=== PATIENT | male | born 1940 | race Caucasian/White ===

== ENCOUNTER 2017-02-18 15:48 | Observation (INO) | payer MEDICARE, OTHER ==
[2017-02-18] MEDS ORDERED: HEPARIN SODIUM,PORCINE 5,000 UNIT/ML 1 ML VIAL IV ONE (15:59)
[2017-02-18] MEDS ORDERED: HEPARIN SODIUM,PORCINE 5,000 UNIT/ML 1 ML VIAL IV PRN (15:59)
[2017-02-18] MEDS ORDERED: NITROGLYCERIN SL TABS 0.4 MG TAB SUBLINGUAL PRN (15:59)
[2017-02-18] MEDS ORDERED: SODIUM CHLORIDE 0.9% 1,000 ML IV STA (15:59)
[2017-02-18] MEDS ORDERED: HEPARIN SODIUM,PORCINE/D5W PMX 25,000 UNIT in DEXTROSE/WATER 1 500ML.BAG IV SCH (16:00)
--- NOTE | 2017-02-18 16:11 | ED ---
General Adult HPI - General Chief complaint: Chest Pain Stated complaint: chest pain Time Seen by Provider: 02/18/17 15:55 Source: patient, EMS, RN notes reviewed, old records reviewed Mode of arrival: EMS Limitations: no limitations - History of Present Illness Initial comments: This is a 76-year-old male to the ER for evaluation. Patient does presents today for evaluation of chest pain. Episodic chest pain. Patient's chest patient from outside facility for cardiac observation. 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 Patient has no nausea vomiting diarrhea. No shortness of breath no fevers cough or congestion. Patient at this point states his pain is controlled and is not acting up. No shortness of breath no diaphoresis - Related Data Home Medications Medication Instructions Recorded Confirmed Allopurinol [Zyloprim] 300 mg PO DAILY 02/23/14 08/24/15 Metoprolol Tartrate [Lopressor] 50 mg PO DAILY 02/23/14 08/24/15 Clindamycin [Cleocin] 150 mg PO TID 08/25/15 08/25/15 Omeprazole [PriLOSEC] 10 mg PO AC-BRKFST 08/25/15 08/25/15 Pravastatin Sodium [Pravachol] 20 mg PO DAILY 08/25/15 08/25/15 Allergies Allergy/AdvReac Type Severity Reaction Status Date / Time divalproex sodium Allergy Unknown Verified 02/18/17 15:57 [From Depakote] phenytoin sodium Allergy Unknown Verified 02/18/17 15:57 [From Dilantin] phenytoin sodium extended Allergy Unknown Verified 02/18/17 15:57 [From Dilantin] Review of Systems ROS Statement: Those systems with pertinent positive or pertinent negative responses have been documented in the HPI. ROS Other: All systems not noted in ROS Statement are negative. 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 Absent: scleral icterus, conjunctival injection, periorbital swelling ENT exam: Present: normal exam, mucous membranes moist Neck exam: Present: normal inspection. Absent: tenderness, meningismus, lymphadenopathy Respiratory exam: Present: normal lung sounds bilaterally. Absent: respiratory distress, wheezes, rales, rhonchi, stridor Cardiovascular Exam: Present: regular rate, normal rhythm, normal heart sounds. Absent: systolic murmur, diastolic murmur, rubs, gallop, clicks GI/Abdominal exam: Present: soft, normal bowel sounds. Absent: distended, tenderness, guarding, rebound, rigid Extremities exam: Present: normal inspection, full ROM, normal capillary refill. Absent: tenderness, pedal edema, joint swelling, calf tenderness Back exam: Present: normal inspection Neurological exam: Present: alert, oriented X3, CN II-XII intact Psychiatric exam: Present: normal affect, normal mood Skin exam: Present: warm, dry, intact, normal color. Absent: rash Course Vital Signs 02/18/17 02/18/17 15:53 15:58 Temperature 98.5 F Pulse Rate 88 52 L Pulse Rate [ 52 L Apical] Respiratory 18 18 Rate Blood Pressure 175/100 O2 Sat by Pulse 96 Oximetry - Reevaluation(s) Reevaluation #1: 02/18/17 16:10 Medical records from transfer reviewed and transient physician is spoken with EKG Findings - EKG Comments: EKG Findings:: EKG shows rate of 53, NH 200, QRS 90, QTC 394 Medical Decision Making - Medical Decision Making 76 me[address] ER for evaluation of chest pain. Patient is history of heart disease , transient of the chest pain observation patient, patient will be admitted for cardiac evaluation, unstable angina with alternating chest pain Critical Care Time Critical Care Time: Yes Total Critical Care Time: 31 Disposition Clinical Impression: Chest pain Disposition: ADMITTED IP TO THIS HOSP Condition: Undetermined Instructions: Chest Pain (ED) Referrals: Lane Vega MD [Primary Care Provider] - 1-2 days
[2017-02-18 16:18] LABS: Basophils % (A) 1 %; CHCM 34.9; Eosinophils # (A) 0.2 k/uL (0-0.7); Eosinophils % (A) 2 %; HGB 15.1 gm/dL (13.0-17.5); Luc # (Auto) 0.09; Luc % (Auto) 1; Lymphocytes # (A) 1.6 k/uL (1.0-4.8); Lymphocytes % (A) 21 %; MCHC 33.6 g/dL (31.0-37.0); MCV 86.3 fL (80.0-100.0); Mean Platelet Volume 6.4; Monocytes # (A) 0.3 k/uL (0-1.0); Monocytes % (A) 5 %; Neutrophils # (A) 5.3 k/uL (1.3-7.7); Neutrophils % (A) 70 %; RBC 5.22 m/uL (4.30-5.90); RDW 13.7 % (11.5-15.5); WBC 7.6 k/uL (3.8-10.6)
[2017-02-18] MEDS: ASPIRIN 81 MG CHEW PO STA ×2 (16:18→16:24)
[2017-02-18 16:26] LABS: INR 1.1 (<1.1); Partial Thromboplastin Time 24.3 sec (22.0-30.0)
[2017-02-18 16:51] LABS: ALT 32 U/L (21-72); AST 31 U/L (17-59); Alkaline Phosphatase 61 U/L (38-126); Anion Gap 11 mmol/L; Blood Urea Nitrogen 20 mg/dL (9-20); Calcium 9.7 mg/dL (8.4-10.2); Carbon Dioxide 24 mmol/L (22-30); Chloride 106 mmol/L (98-107); Creatine Kinase 82 U/L (55-170); Glucose 89 mg/dL (74-99); Non-African American GFR(MDRD) >60 (>60 ml/min/1.73 sqM); Sodium 141 mmol/L (137-145); Total Bilirubin 0.8 mg/dL (0.2-1.3); Total Protein 7.2 g/dL (6.3-8.2)
[2017-02-18 17:03] LABS: Troponin I <0.012 ng/mL (0.000-0.034)
[2017-02-18 19:40] VITALS: RESP 16
[2017-02-18] MEDS ORDERED: TEMAZEPAM 15 MG CAP PO PRN (21:12)
[2017-02-18] MEDS ORDERED: HYDROmorphone 1 MG/ML 1 ML SYRINGE IVP PRN (21:12)
[2017-02-18] MEDS ORDERED: HYDROcodone/APAP 5-325MG 1 EACH TAB PO PRN (21:12)
[2017-02-18] MEDS ORDERED: ALPRAZolam 0.25 MG TAB PO PRN (21:12)
[2017-02-18] MEDS ORDERED: LISINOPRIL 5 MG TAB PO SCH (22:00)
[2017-02-18] MEDS: METOPROLOL TARTRATE 50 MG TAB PO SCH (22:18)
[2017-02-18 23:10] LABS: Creatine Kinase 74 U/L (55-170)
[2017-02-18 23:23] LABS: Creatine Kinase MB 0.9 ng/mL (0.0-2.4); Troponin I <0.012 ng/mL (0.000-0.034)
[2017-02-19 07:26] LABS: Anion Gap 10 mmol/L; Blood Urea Nitrogen 16 mg/dL (9-20); Calcium 9.2 mg/dL (8.4-10.2); Carbon Dioxide 26 mmol/L (22-30); Chloride 106 mmol/L (98-107); Cholesterol 133 mg/dL (<200); Glucose 84 mg/dL (74-99); HDL Cholesterol 41 mg/dL (40-60); Non-African American GFR(MDRD) >60 (>60 ml/min/1.73 sqM); Potassium 4.3 mmol/L (3.5-5.1); Sodium 142 mmol/L (137-145); Triglycerides 108 mg/dL (<150)
[2017-02-19 07:32] LABS: Basophils # (A) 0.1 k/uL (0-0.2); Basophils % (A) 1 %; CH 29.8; CHCM 33.9; Eosinophils # (A) 0.2 k/uL (0-0.7); Eosinophils % (A) 4 %; HCT 43.7 % (39.0-53.0); HDW 2.93; HGB 14.4 gm/dL (13.0-17.5); Luc # (Auto) 0.11; Luc % (Auto) 2; Lymphocytes # (A) 1.3 k/uL (1.0-4.8); Lymphocytes % (A) 25 %; MCH 29.2 pg (25.0-35.0); MCV 88.4 fL (80.0-100.0); Mean Platelet Volume 6.3; Monocytes # (A) 0.3 k/uL (0-1.0); Monocytes % (A) 6 %; Neutrophils # (A) 3.2 k/uL (1.3-7.7); Neutrophils % (A) 61 %; RBC 4.95 m/uL (4.30-5.90); RDW 13.7 % (11.5-15.5); WBC 5.2 k/uL (3.8-10.6); WBC (Perox) 5.11
[2017-02-19 07:35] LABS: Creatine Kinase 66 U/L (55-170)
[2017-02-19 07:48] LABS: Troponin I <0.012 ng/mL (0.000-0.034)
[2017-02-19 07:49] LABS: Creatine Kinase MB 0.9 ng/mL (0.0-2.4)
[2017-02-19 07:53] VITALS: BP 156/74; PULSE 52; TEMP 97.7
--- NOTE | 2017-02-19 08:04 | HP ---
DATE OF ADMISSION: 02/18/2017 CHIEF COMPLAINT: Chest pains. HISTORY OF PRESENT ILLNESS: This 76-year-old gentleman with a past medical history of CAD, history of CVA/TIA, history of degenerative joint disease, prostate disorder, history of bleeding ulcer, back surgery, CAD/CABG being followed by in the [place] area had a recent tooth extraction of four or five teeth in the lower jaw area from [place]. The patient having chest pain, which was felt in the anterior part of the chest and the patient subsequently sent to [facility]. He was admitted to the hospital for further evaluation and treatment. There is no history of fever, rigors or chills. No history of headache, loss of consciousness or seizures. No history of palpitations, shortness of breath, hematochezia or melena at this time. The pain was mild to moderate in intensity which was felt in the anterior part of the chest without radiation. No associated sweating or palpitation. PAST MEDICAL HISTORY: 1. History of coronary artery disease. 2. History of chest pain/angina. 3. History of cerebrovascular accident, transient ischemic attack. 4. History of gastrointestinal bleed. 5. Hypertension. 6. Hyperlipidemia. History of degenerative joint disease. 7. History of back surgery. Medications prior to admission, the home medications are: 1. Zestril 5 mg p.o. daily. 2. Flomax 0.4 daily. 3. Pravachol 20 mg q.h.s. 4. Lopressor 50 mg daily. 5. Aspirin 81 mg. 6. Zyloprim 100 mg p.o. daily. ALLERGIES: DEPAKOTE AND DILANTIN. FAMILY HISTORY: History of diabetes mellitus and aneurysm in the family. SOCIAL HISTORY: Previous history of smoking, no history of current smoking or alcohol intake. REVIEW OF SYSTEMS: ENT: No diminished vision, no diminished hearing. CARDIOVASCULAR: As mentioned earlier. RESPIRATORY: As mentioned earlier. GI: No nausea. : No dysuria. Nervous system: No numbness or weakness. ALLERGY/IMMUNOLOGY: No asthma or hayfever. MUSCULOSKELETAL: As mentioned earlier. HEMATOLOGY/ONCOLOGY: No history of anemia. ENDOCRINE: No history of diabetes mellitus or hypothyroidism. CONSTITUTIONAL: As mentioned earlier. DERMATOLOGY: Negative. RHEUMATOLOGY: Negative. PSYCHIATRY: As mentioned earlier. PHYSICAL EXAMINATION: The patient is alert and oriented x3. Pulse is 64. Blood pressure 192/80. Respiratory rate 16, temperature 99.9, pulse ox 97% on room air. HEENT: Conjunctivae normal. NECK: No jugular venous distention. CARDIOVASCULAR: S1, S2 muffled. RESPIRATORY: Breath sounds diminished at the bases. A few rhonchi, no crackles. ABDOMEN: Soft. Nontender. No mass palpable. LEGS: No edema. No swelling. CENTRAL NERVOUS SYSTEM: Higher functions as mentioned earlier. Moves all four limbs. No focal deficits. LYMPHATICS: No lymph nodes palpable in the neck, axillae or groin. Oral cavity: Some bleeding from the tooth excised sites present. SKIN: No ulcer, rash, bleeding. Joints: No active deforming arthropathy. LABS: CBC within normal limits. INR 1.1. CBC/CMP within normal limits. The EKG showed sinus bradycardia with ST-T changes. ASSESSMENT: 1. Chest pain for evaluation possible unstable angina. 2. ST-T wave changes on the EKG. 3. Bleeding from the tooth extraction in the mouth. 4. History of coronary artery disease, coronary artery bypass grafting. 5. History of back surgery. 6. History of degenerative joint disease. 7. Cerebrovascular accident/ transient ischemic attack. 8. History of gastrointestinal bleed. 9. History of hypertension. 10. Hyperlipidemia. 11. History of osteoarthritis. 12. History of prostate disorder. 13. History of gout. 14. History of left facial 15. History of peritonsillar abscess. 16. Nicotine dependence. RECOMMENDATIONS AND DISCUSSION: This 76-year-old gentleman who presented with multiple complex medical issues. We will monitor the patient closely. Continue the current medications. Continue symptomatic treatment. Rule out myocardial infarction. I would also recommend antiplatelet agents and beta blockers also. We will also hold the antiplatelet agents for now because of significant bleeding noted. Otherwise consult cardiology. Guarded prognosis. Further recommendations to follow. Continue with nitro. See orders for further details. MTDD
[2017-02-19] MEDS ORDERED: ATORVASTATIN 80 MG TAB PO SCH (09:00)
[2017-02-19] MEDS ORDERED: ALLOPURINOL 100 MG TAB PO SCH (09:00)
[2017-02-19] MEDS ORDERED: ASPIRIN 325 MG TAB PO SCH (09:00)
[2017-02-19] MEDS ORDERED: TAMSULOSIN 0.4 MG CAP.ER.24H PO SCH (09:00)
[2017-02-19] MEDS ORDERED: LISINOPRIL 10 MG TAB PO SCH (09:00)
--- NOTE | 2017-02-19 09:06 | P.CRDCN ---
History of Present Illness Consult date: 02/19/17 Chief complaint: Chest discomfort History of present illness: This is a pleasant 76-year-old gentleman who I follow at [place] with a past medical history significant for CAD, hypertension, and dyslipidemia, was transferred from [facility] to [facility] for further evaluation of chest discomfort. The patient was having teeth extraction yesterday at Dr. hernandez and after that he was experiencing chest discomfort as sharp kind of discomfort in the mid of the chest without any radiation and without any associated symptoms. The patient was initially sent to the emergency room at [place] and then he was transferred to [place]. The patient has been pain-free during his hospitalization. The EKG showed sinus rhythm without any significant changes. The cardiac enzymes were checked and came in to be unremarkable. The blood pressure has been severely elevated and uncontrolled during his hospitalization. I think the patient has hypertensive emergency. Currently he is on lisinopril at 5 mg by mouth daily and I would increase the dose to 10 mg by mouth twice a day. I advised the patient to get up and around and walk in the hallway and if he is pain-free he might be able to be discharged home and I'll follow-up with the patient at [place]. Past Medical History Past Medical History: Coronary Artery Disease (CAD), Chest Pain / Angina, CVA/ TIA, GI Bleed, Hyperlipidemia, Hypertension, Osteoarthritis (OA), Prostate Disorder Additional Past Medical History / Comment(s): 1960 annd 1970's bleeding ulcers, arthritis,djd, gout, lt eye twitching, pt is lt side dominant. 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 no indoor pets. one level home with 5-6 steps. no outside services, only med equipment is a device that checks his blood pressure. Smoking Status: Former smoker Past Alcohol Use History: None Reported Additional Past Alcohol Use History / Comment(s): started smoking age 21(1960) occ cig -mostly cigars, quit 1979 Past Drug Use History: None Reported - Past Family History Father Additional Family Medical History / Comment(s): aneursym Mother Family Medical History: Diabetes Mellitus Medications and Allergies Home Medications Medication Instructions Recorded Confirmed Type Metoprolol Tartrate [Lopressor] 50 mg PO DAILY 02/23/14 02/18/17 History Pravastatin Sodium [Pravachol] 20 mg PO HS 08/25/15 02/18/17 History Allopurinol [Zyloprim] 100 mg PO DAILY 02/18/17 02/18/17 History Aspirin EC [Ecotrin Low Dose] 81 mg PO DAILY 02/18/17 02/18/17 History Lisinopril [Zestril] 5 mg PO DAILY 02/18/17 02/18/17 History Tamsulosin HCl [Flomax] 0.4 mg PO DAILY 02/18/17 02/18/17 History Allergies Allergy/AdvReac Type Severity Reaction Status Date / Time divalproex sodium AdvReac Trouble Verified 02/18/17 16:11 [From Depakote] Urinating phenytoin sodium AdvReac Trouble Verified 02/18/17 16:11 [From Dilantin] Urinating phenytoin sodium extended AdvReac Trouble Verified 02/18/17 16:11 [From Dilantin] Urinating Physical Exam Vitals: Vital Signs Temp Pulse Pulse Resp BP BP Pulse Ox 02/19/17 07:52 97.7 F 52 L 16 156/74 98 02/19/17 04:00 98.0 F 61 16 186/92 97 02/19/17 03:58 53 L 16 02/19/17 00:00 98.1 F 46 L 16 154/87 98 02/18/17 20:00 49 L 16 02/18/17 19:39 97.9 F 64 16 192/88 95 02/18/17 18:10 18 02/18/17 18:09 96.6 F L 60 18 193/85 96 02/18/17 17:40 98.3 F 59 L 18 183/85 97 Intake and Output 02/18/17 02/19/17 02/19/17 22:59 06:59 14:59 Intake Total 81.333 Balance 81.333 Intake: Intake, IV Titration 81.333 Amount Heparin Sodium,Porcine/ 81.333 D5w Pmx 25,000 unit In Dextrose/Water 1 500ml. bag @ 10.807 UNITS/KG/HR 20 mls/hr IV .Q24H [facility] Rx #:[id number] Other: Voiding Method Toilet Toilet # Voids 2 Weight 91.3 kg - Constitutional General appearance: no acute distress - Respiratory Respiratory: bilateral: CTA - Cardiovascular Rhythm: regular Heart sounds: normal: S1, S2 Abnormal Heart Sounds: systolic murmur Results 02/19/17 06:43 02/19/17 06:43 Cardiac Enzymes 02/18/17 02/19/17 Range/Units 22:25 07:01 CK-MB (CK-2) 0.9 0.9 (0.0-2.4) ng/mL Troponin I <0.012 <0.012 (0.000-0.034) ng/mL Coagulation 02/18/17 Range/Units 22:25 APTT 25.0 (22.0-30.0) sec Lipids 02/19/17 Range/Units 06:43 Triglycerides 108 (<150) mg/dL Cholesterol 133 (<200) mg/dL HDL Cholesterol 41 (40-60) mg/dL CBC 02/19/17 Range/Units 06:43 WBC 5.2 (3.8-10.6) k/uL RBC 4.95 (4.30-5.90) m/uL Hgb 14.4 (13.0-17.5) gm/dL Hct 43.7 (39.0-53.0) % Plt Count 265 (150-450) k/uL Comprehensive Metabolic Panel 02/19/17 Range/Units 06:43 Sodium 142 (137-145) mmol/L Potassium 4.3 (3.5-5.1) mmol/L Chloride 106 (98-107) mmol/L Carbon Dioxide 26 (22-30) mmol/L BUN 16 (9-20) mg/dL Creatinine 1.06 (0.66-1.25) mg/dL Glucose 84 (74-99) mg/dL Calcium 9.2 (8.4-10.2) mg/dL Current Medications Generic Name Dose Route Start Last Admin Trade Name Freprem PRN Reason Stop Dose Admin Hydrocodone Bitart/Acetaminophen 1 each 02/18/17 21:12 [facility] 5-325 PO Q6HR PRN MODERATE Pain Allopurinol 100 mg 02/19/17 09:00 Zyloprim PO DAILY [facility] Alprazolam 0.25 mg 02/18/17 21:12 Xanax PO TID PRN Anxiety Atorvastatin Calcium 80 mg 02/19/17 09:00 Lipitor PO DAILY JAGDEEP Hydromorphone HCl 0.5 mg 02/18/17 21:12 Dilaudid IVP Q6HR PRN Severe Pain Lisinopril 10 mg 02/19/17 09:00 Zestril PO BID [facility] Metoprolol Tartrate 50 mg 02/18/17 22:00 02/18/17 22:18 Lopressor PO 50 mg DAILY [facility] Administration Nitroglycerin 0.4 mg 02/18/17 15:59 Nitrostat SUBLINGUAL Q5M PRN Chest Pain Tamsulosin HCl 0.4 mg 02/19/17 09:00 Flomax PO DAILY [facility] Temazepam 15 mg 02/18/17 21:12 Restoril PO HS PRN Insomnia Intake and Output 02/18/17 02/19/17 02/19/17 22:59 06:59 14:59 Intake Total 81.333 Balance 81.333 Intake: Intake, IV Titration 81.333 Amount Heparin Sodium,Porcine/ 81.333 D5w Pmx 25,000 unit In Dextrose/Water 1 500ml. bag @ 10.807 UNITS/KG/HR 20 mls/hr IV .Q24H [facility] Rx #:[id number] Other: Voiding Method Toilet Toilet # Voids 2 Weight 91.3 kg 02/19/17 06:43 02/19/17 06:43 Assessment and Plan Plan: Assessment #1 hypertension emergency #2 known CAD #3 multiple comorbidities Plan #1 the patient was ruled out for acute coronary event #2 increase the dose of lisinopril to 10 mg by mouth twice a day #3 the patient can be discharged home
[2017-02-19] MEDS: METOPROLOL TARTRATE 50 MG TAB PO SCH (09:41)
--- NOTE | 2017-02-23 15:30 | DS ---
DATE OF ADMISSION: 02/18/2017 DATE OF DISCHARGE: 02/19/2017 DATE OF SERVICE: 02/19/2017 FINAL DIAGNOSES: 1. Chest pain, myocardial infarction ruled out, possibly musculoskeletal. 2. Hypertensive urgency. 3. ST-T wave changes on EKG. 4. Bleeding from the tooth extraction in the mouth recently. 5. History of coronary artery disease, coronary artery bypass grafting. 6. History of back surgery. 7. History of degenerative joint disease. 8. History of cerebrovascular accident, transient ischemic attack. 9. History of gastrointestinal bleed. 10. History of hypertension. 11. History of hyperlipidemia. 12. History of prostate disorder. 13. History of gout. 14. History of left facial weakness. 15. History of peritonsillar abscess. 16. History of nicotine dependence. 17. FULL CODE. DISCHARGE DISPOSITION: The patient will be discharged in a stable condition with guarded prognosis. Cardiology cleared the patient for discharge. HISTORY OF PRESENT ILLNESS: This 75-year-old gentleman with a past medical history of multiple medical problems being followed by a doctor in the [place] area was admitted with chest pain, myocardial infarction ruled out. Cardiology evaluated the patient and Dr. Vega saw the patient and medical treatment was recommended. Lisinopril was recommended to be increased. On exam, vitals are stable. CARDIOVASCULAR SYSTEM: S1, S2. ABDOMEN: Soft. NERVOUS SYSTEM: No focal deficits. DISCHARGE ADVICE: 1. Diet is cardiac. 2. Activity limited until followup. 3. Follow up with primary physician in 2 to 3 days. 4. Follow up with Dr. Vega as advised. Medications will be: 1. Zyloprim 100 mg p.o. daily. 2. Ecotrin 81 mg p.o. daily. 3. Zestril 20 mg p.o. b.i.d. 4. Lopressor 50 mg p.o. daily. 5. Pravachol 20 mg q.h.s. 6. Flomax 0.4 daily.
== END 2017-02-19 12:55 | disposition home or self-care (01) ==
LOC: EC 15:48 → 3OBS 16:04
PROVIDERS: ADMIT Hospitalist; ATTEND Hospitalist
DX: R07.89 Other chest pain (principal); I16.0 Hypertensive urgency; I16.1 Hypertensive emergency; I10 Essential (primary) hypertension; R94.31 Abnormal electrocardiogram [ECG] [EKG]; K91.840 Postprocedural hemorrhage of a digestive system organ or structure following a digestive system procedure; I25.10 Atherosclerotic heart disease of native coronary artery without angina pectoris; Z95.1 Presence of aortocoronary bypass graft; M19.90 Unspecified osteoarthritis, unspecified site; Z98.1 Arthrodesis status; Z86.73 Personal history of transient ischemic attack (TIA), and cerebral infarction without residual deficits; E78.5 Hyperlipidemia, unspecified; N42.9 Disorder of prostate, unspecified; M10.9 Gout, unspecified; R29.810 Facial weakness; Z87.891 Personal history of nicotine dependence; Z79.899 Other long term (current) drug therapy; Z79.2 Long term (current) use of antibiotics; Z88.8 Allergy status to other drugs, medicaments and biological substances; Z95.2 Presence of prosthetic heart valve; Z83.3 Family history of diabetes mellitus; Z79.82 Long term (current) use of aspirin
CPT/HCPCS: 96361 ×2; 96365; 99291; 36415; 93005; 80061; 80053; 80048; 82550 ×2; 82553 ×2; 83735; 84484 ×2; 85025 ×2; 85610; 85730; G0378 ×2; J1644